=== PATIENT | female | born 1945 | race Caucasian/White ===

== ENCOUNTER 2017-12-07 09:16 | Outpatient (CLI) | payer MEDICARE, BC | END 2017-12-07 09:17 | disposition home or self-care (01) | LOC: BICMAMMO 09:16 | PROVIDERS: ATTEND Family Medicine | DX: R92.8 Other abnormal and inconclusive findings on diagnostic imaging of breast (principal) | CPT/HCPCS: 76642; 77066; G0279 ==

== ENCOUNTER 2018-04-13 09:49 | Outpatient (CLI) | payer MEDICARE, BC ==
--- NOTE | 2018-04-13 12:55 | MRI ---
MRI THORACIC SPINE: History: Back spasm for years with thoracic radiculopathy. M54.14 Technique: Multiplanar, multisequence noncontrast MRI images were obtained of the thoracic spine. FINDINGS: The spinal cord is unremarkable with no evidence of cord masses. Vertebral bodies are unremarkable. No evidence of vertebral body masses or lesions seen. The central canal is patent. No evidence of disc herniation is seen. The neural foramen are patent. IMPRESSION: Unremarkable MRI thoracic spine. 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 POS: TIAGO
== END 2018-04-13 09:50 | disposition home or self-care (01) ==
LOC: TBSIIMAG 09:49
PROVIDERS: ATTEND Anesthesiology Pain Medicine
DX: M54.14 Radiculopathy, thoracic region (principal)
CPT/HCPCS: 72146

== ENCOUNTER 2019-12-27 09:53 | Outpatient (CLI) | payer MEDICARE, BC ==
--- NOTE | 2019-12-27 11:51 | BD ---
BONE DENSITOMETRY: Date: 12/27/2019 HISTORY: Postmenopausal screening. FINDINGS: Lumbar Spine: BMD (g/cm2) L1 0.835 T-Score: -1.4 L2 0.871 T-Score: -1.4 L3 0.960 T-Score: -1.1 L4 0.874 T-Score: -1.7 Total 0.887 T-Score: -1.5 Left Femoral Neck: 0.615 T-Score: -2.1 Total Femur: 0.900 T-Score: -0.3 IMPRESSION: Bone mineral density of the lumbar spine and femoral neck both indicate osteopenia. POS: AGW
--- NOTE | 2019-12-27 12:59 | MMO ---
Bilateral MAMMO Bilat Screen [facility]. CLINICAL HISTORY: Patient is 74 years old and is seen for screening. The patient has no family history of breast cancer. The patient has no personal history of cancer. The patient has a history of right Excisional Biopsy in 1975 - benign. VIEWS: The views performed were: bilateral craniocaudal with tomosynthesis and bilateral mediolateral oblique with tomosynthesis. FILMS COMPARED: The present examination has been compared to prior imaging studies performed at [facility] on 01/14/2012, 09/18/2016, 09/25/2016 and 12/07/2017. This study has been interpreted with the assistance of computer-aided detection. MAMMOGRAM FINDINGS: The breasts are heterogeneously dense, which could obscure a lesion on mammography. There are stable benign appearing calcifications seen in both breasts. There are no suspicious masses, suspicious calcifications, or new areas of architectural distortion. IMPRESSION: THERE IS NO MAMMOGRAPHIC EVIDENCE OF MALIGNANCY. A ROUTINE FOLLOW-UP MAMMOGRAM IN 1 YEAR IS RECOMMENDED. THE RESULTS OF THIS EXAM WERE SENT TO THE PATIENT. ACR BI-RADS Category 2 - Benign finding MAMMOGRAPHY NOTE: 1. A negative mammogram report should not delay a biopsy if a dominant of clinically suspicious mass is present. 2. Approximately 10% to 15% of breast cancers are not detected by mammography. 3. Adenosis and dense breasts may obscure an underlying neoplasm. Reported by: AHMET YEH MD Electonically Signed: [id number]
== END 2019-12-27 09:54 | disposition home or self-care (01) ==
LOC: BICMAMMO 09:53
PROVIDERS: ATTEND Family Medicine
DX: Z12.31 Encounter for screening mammogram for malignant neoplasm of breast (principal); M85.89 Other specified disorders of bone density and structure, multiple sites
CPT/HCPCS: 77063; 77067; 77080